=== PATIENT | male | born 1965 | race Caucasian/White ===

== ENCOUNTER 2016-06-01 22:26 | Emergency (ER) | payer BC ==
[~2016-06-01] VITALS: Ht 177.8 cm; Wt 102.0 kg
[2016-06-01 22:28] VITALS: BP 172/83; PULSE 87; RESP 16; TEMP 97.7; O2SAT 100
--- NOTE | 2016-06-02 00:51 | PD ---
HPI Chief Complaint: Skin Problem Time Seen by Provider: 00:49 Travel History International Travel<30 days: No Contact w/Intl Traveler<30days: No Traveled to known affect area: No History of Present Illness HPI Patient comes in for evaluation of a infection to his left index finger that began 2 days ago. Patient denies doing anything for this. Patient believes he may have had a hangnail that got infected. Patient denies doing anything for this. Describes pain as pressure-like pain at the site of the infection. Patient states he looked it up online and was found that he might need to have it drained and started on antibiotics. Patient denies any fevers with this. Pain is worse with palpation. Denies any radiation of the pain. Denies any fevers. Patient reports his blood sugars are running in the low 100s. [facility] Past Medical History Diabetes: Yes (INSULIN DEPENDENT) Patient Takes Glucophage: No Hypertension: Yes Immunizations Current: Yes Tetanus Vaccination: Never Vaccinated Influenza Vaccination: No Social History Alcohol Use: No Tobacco Use: No Substance Use: No Allergies-Medications (Allergen,Severity, Reaction): Coded Allergies: No Known Allergies (Unverified , 06/02/16) Reported Meds & Prescriptions Reported Meds & Active Scripts Active Bactrim DS (Sulfamethoxazole-Trimethoprim) 800-160 Mg Tab 1 Tab PO BID Review of Systems Except as stated in HPI: all other systems reviewed are Neg Physical Exam Narrative GENERAL: Well-developed, overly nourished, in no acute distress, and non-ill appearing. SKIN: Warm and dry. Fluctuant paronychia noted lateral aspect of the left index finger. There is no felon, streaking, crepitus, or cellulitis. HEAD: Atraumatic. Normocephalic. EYES: Pupils equal and round. EOMI. No scleral icterus. No injection or drainage. ENT: No nasal bleeding or discharge. Mucous membranes pink and moist. NECK: Trachea midline. Supple. No nuclear rigidity. RESPIRATORY: No accessory muscle use. No respiratory distress. MUSCULOSKELETAL: No obvious deformities. No clubbing. No cyanosis. No edema. Full range of motion. NEUROLOGICAL: Awake and alert. No obvious cranial nerve deficits. Motor grossly within normal limits. Normal speech. PSYCHIATRIC: Appropriate mood and affect; insight and judgment normal. Data Data Last Documented VS Vital Signs Date Time Temp Pulse Resp B/P Pulse Ox O2 Delivery O2 Flow Rate FiO2 06/01/16 22:28 97.7 87 16 172/83 100 Orders Wound Culture And Gram Stain (06/02/16 00:51) MDM Medical Decision Making Medical Screen Exam Complete: Yes Emergency Medical Condition: Yes Differential Diagnosis Paronychia, felon, abscess, cellulitis, other Narrative Course The patient presented with a paronychia to the finger. There was no extending cellulitis or evidence of suppurative tendonitis. There was no evidence of subungual involvement or felon. Incision and drainage was performed and small pus was liberated. The patient was given wound care and infection warnings and discharged home on antibiotics. The patient was also instructed to follow up with referred physician and warnings to return to ED if worsens, or as directed. The patient agreed with plan. Patient in no obvious distress upon re-evaluation. Patient was asked if they wanted to speak to my attending, which the patient did not wish to do at this time. Any questions/concerns in reference to patient diagnosis/condition discussed and clarified prior to patient's discharge. Reinforced sheer importance of close follow up with patient's primary physician or primary care clinic. Instructed patient to return to ED immediately, if symptoms return/ worsen. Pt showed understanding of above instructions. Further instructions and recommendations were detailed in discharge paperwork. Pt ambulated without difficulty out of ED at discharge. Procedures Procedure Narrative Verbal consent was obtained. Area was cleaned and prepped using Betadine. Area was anesthetized using ethyl chloride spray. Paronychia was I&D using a # 15 blade scalpel. Purulent drainage was removed. Wound culture was obtained. Wound was irrigated with copious amounts of normal saline. Sterile dressing was applied by nurse. Patient tolerated procedure well. There was no complications. Diagnosis Primary Impression: Paronychia of finger Qualified Code: L03.012 - Paronychia of finger, left Patient Instructions: General Instructions, Paronychia (ED) Additional Instructions: Follow-up with your primary care physician or return here in 2 days for recheck. Take all medication as prescribed. Keep wound dry and clean as possible using soap and water. Return to the emergency department if symptoms get worse.s Med/Other Pt SpecificInfo: Prescription(s) given Scripts Sulfamethoxazole-Trimethoprim (Bactrim DS)800-160 Mg Tab1 Tab PO BID #14 TAB Ref 0 Prov:Latrice Mart MD 06/02/16 Disposition: 01 DISCHARGE HOME Condition: Stable Jas Barton Jun 02, 2016 00:51
[2016-06-02] MEDS ORDERED: BACT800T5 PO (01:05)
== END 2016-06-02 01:53 | disposition home or self-care (01) ==
LOC: NEPB 22:26
DX: L03.012 Cellulitis of left finger (principal); E11.9 Type 2 diabetes mellitus without complications; I10 Essential (primary) hypertension; B95.1 Streptococcus, group B, as the cause of diseases classified elsewhere; B96.89 Other specified bacterial agents as the cause of diseases classified elsewhere
CPT/HCPCS: 10060; 86403; 87070; 87077; 87186